=== PATIENT | female | born 1955 | race Caucasian/White ===

== ENCOUNTER 2018-01-15 08:18 | Observation (INO) | payer OTHER ==
[~2018-01-15] VITALS: Ht 165.1 cm; Wt 96.4 kg
[~2018-01-15 08:18] MED LIST: Bactrim Ds Tab1 EACH PO; CIPR500 PO; ERGO400 PO; GLUC500 PO; GNP B-COMPLEX1 EACH PO; IBUP800 PO; LEVSOD100 PO; OXYACE5T PO; Percocet 5-3251 EACH PO; Prinivil10 MG PO; VITAMIN D PO
[2018-01-15 09:00] LABS: BASOPHILS ABSOLUTE AUTO 0.03 K/mm3 (0.00-0.23); BASOPHILS PERCENT AUTO 0 % (0-2); EOSINOPHILS ABSOLUTE AUTO 0.13 K/mm3 (0.00-0.68); EOSINOPHILS PERCENT AUTO 2 % (0-6); Hematocrit 47.1 % (33.0-51.0); Hemoglobin 16.3 g/dL (11.5-16.0); IMMATURE GRAN ABSOLUTE AUTO 0.01 K/mm3 (0.00-0.10); IMMATURE GRAN PERCENT AUTO 0 % (0-1); LYMPHOCYTES ABSOLUTE AUTO 2.52 K/mm3 (0.84-5.20); LYMPHOCYTES PERCENT AUTO 29 % (21-46); MONOCYTES ABSOLUTE AUTO 1.07 K/mm3 (0.16-1.47); MONOCYTES PERCENT AUTO 12 % (4-13); Mean Corpuscular HGB 33.7 pg (26.0-34.0); Mean Corpuscular HGB Conc 34.6 g/dL (31.5-36.5); Mean Corpuscular Volume 97 fL (80-100); Mean Platelet Volume 9.9 fL (9.1-12.4); NEUTROPHILS ABSOLUTE AUTO 4.91 K/mm3 (1.96-9.15); NEUTROPHILS PERCENT AUTO 57 % (41-73); Platelet Count 256 K/mm3 (150-400); RDW Coefficient Variation 15.2 % (11.7-14.2); RDW Standard Deviation 54.1 fL (35.1-46.3); Red Blood Cell Count 4.84 M/mm3 (3.80-5.20); White Blood Cell Count 8.67 K/mm3 (4.00-11.30)
[2018-01-15 09:16] LABS: Alanine Aminotransfer (ALT/SGP 17 U/L (12-78); Albumin, Blood 3.2 g/dL (3.4-5.0); Albumin/Globulin Ratio 0.8 (0.8-1.8); Alk Phos 83 U/L (50-136); Anion Gap 8 mmol/L (6-16); Aspartate Aminotrans (AST/SGOT 12 U/L (12-37); Bilirubin, Total 0.5 mg/dL (0.1-1.0); Blood Urea Nitrogen 16 mg/dL (8-24); Bun/Creatinine Ratio 17.5 (12.0-20.0); CO2, Blood 24 mmol/L (21-32); Chloride, Blood 106 mmol/L (98-108); Creatinine, Blood 0.92 mg/dL (0.40-1.00); Globulin, Blood 4.1 g/dL (2.2-4.0); Glomerular Filtration Rate >60 (60-); Glucose, Blood 98 mg/dL (70-99); Potassium, Blood 4.5 mmol/L (3.5-5.5); Sodium, Blood 138 mmol/L (136-145); Total Protein, Blood 7.3 g/dL (6.4-8.2)
[2018-01-15 09:52] LABS: Base Excess Venous 0.2 mmol/L; Bicarbonate Venous 24.1 mmol/L (24.0-30.0); PCO2 Venous 44.3 mmHg (38-42); pH Blood Venous 7.37 (7.34-7.37)
[2018-01-16 04:13] LABS: BASOPHILS ABSOLUTE AUTO 0.01 K/mm3 (0.00-0.23); BASOPHILS PERCENT AUTO 0 % (0-2); EOSINOPHILS PERCENT AUTO 0 % (0-6); Hemoglobin 15.2 g/dL (11.5-16.0); IMMATURE GRAN ABSOLUTE AUTO 0.05 K/mm3 (0.00-0.10); IMMATURE GRAN PERCENT AUTO 1 % (0-1); LYMPHOCYTES ABSOLUTE AUTO 1.05 K/mm3 (0.84-5.20); LYMPHOCYTES PERCENT AUTO 10 % (21-46); MONOCYTES ABSOLUTE AUTO 0.19 K/mm3 (0.16-1.47); MONOCYTES PERCENT AUTO 2 % (4-13); Mean Corpuscular HGB 33.2 pg (26.0-34.0); Mean Corpuscular HGB Conc 34.5 g/dL (31.5-36.5); Mean Corpuscular Volume 96 fL (80-100); Mean Platelet Volume 9.8 fL (9.1-12.4); NEUTROPHILS ABSOLUTE AUTO 9.59 K/mm3 (1.96-9.15); NEUTROPHILS PERCENT AUTO 88 % (41-73); Platelet Count 258 K/mm3 (150-400); RDW Coefficient Variation 14.9 % (11.7-14.2); Red Blood Cell Count 4.58 M/mm3 (3.80-5.20); White Blood Cell Count 10.89 K/mm3 (4.00-11.30)
[2018-01-16 04:39] LABS: Calcium, Blood 8.8 mg/dL (8.5-10.1); Creatinine, Blood 1.07 mg/dL (0.40-1.00); Potassium, Blood 4.3 mmol/L (3.5-5.5); Thyroxine (T4) 7.3 ug/dL (4.8-13.9)
[2018-01-16 04:46] LABS: Thyroid Stimulating Hormone 0.373 uIU/mL (0.360-4.800); Triiodothyronine, Free 1.37 pg/mL (2.18-3.98)
[2018-01-16] MEDS ORDERED: FAMO20 PO (12:30)
[2018-01-16] MEDS ORDERED: Ipratr-Albuterol3 ML INH (12:33)
[2018-01-16] MEDS ORDERED: PRED20 PO (12:36)
== END 2018-01-16 14:53 | disposition home or self-care (01) ==
LOC: ER 08:18 → MEDS 08:19
PROVIDERS: Emergency Medicine; Internal Medicine; Physician Assistant
DX: J96.01 Acute respiratory failure with hypoxia (principal); J44.1 Chronic obstructive pulmonary disease with (acute) exacerbation; F41.9 Anxiety disorder, unspecified; I10 Essential (primary) hypertension; E03.9 Hypothyroidism, unspecified; E78.5 Hyperlipidemia, unspecified; F17.290 Nicotine dependence, other tobacco product, uncomplicated; Z79.899 Other long term (current) drug therapy
CPT/HCPCS: 36415; 71046; 80048; 80053; 82803; 83880; 84145; 84436; 84443; 84481; 84484; 85025; 93005; 93010; 94640; 94644; 94760; 94761; 96361; 96374; 96376; 99285; G0378; J0456; J1650; J1885; J2930; J7030; J7050

== ENCOUNTER → 2018-04-04 | Outpatient (CLI) | payer OTHER ==
[~2018-04-04] MED LIST changes: +FAMO20 PO; +Ipratr-Albuterol3 ML INH; +PRED20 PO
== END | disposition home or self-care (01) ==
LOC: LAB SHORT 10:01 → LAB 10:01
DX: L08.9 Local infection of the skin and subcutaneous tissue, unspecified (principal)
CPT/HCPCS: 87070; 87205

== ENCOUNTER 2020-06-18 16:08 | Emergency (ER) | payer OTHER ==
[~2020-06-18] VITALS: Ht 165.1 cm; Wt 72.6 kg
[2020-06-18 16:35] LABS: BASOPHILS ABSOLUTE AUTO 0.04 K/mm3 (0.00-0.23); BASOPHILS PERCENT AUTO 1 % (0-2); EOSINOPHILS ABSOLUTE AUTO 0.14 K/mm3 (0.00-0.68); EOSINOPHILS PERCENT AUTO 2 % (0-6); Hematocrit 46.7 % (33.0-51.0); Hemoglobin 15.3 g/dL (11.5-16.0); IMMATURE GRAN ABSOLUTE AUTO 0.01 K/mm3 (0.00-0.10); IMMATURE GRAN PERCENT AUTO 0 % (0-1); LYMPHOCYTES ABSOLUTE AUTO 3.25 K/mm3 (0.84-5.20); LYMPHOCYTES PERCENT AUTO 41 % (21-46); MONOCYTES ABSOLUTE AUTO 0.83 K/mm3 (0.16-1.47); MONOCYTES PERCENT AUTO 11 % (4-13); Mean Corpuscular HGB 30.2 pg (26.0-34.0); Mean Corpuscular HGB Conc 32.8 g/dL (31.5-36.5); Mean Corpuscular Volume 92 fL (80-100); Mean Platelet Volume 9.7 fL (9.1-12.4); NEUTROPHILS ABSOLUTE AUTO 3.63 K/mm3 (1.96-9.15); NEUTROPHILS PERCENT AUTO 46 % (41-73); Platelet Count 329 K/mm3 (150-400); RDW Coefficient Variation 13.6 % (11.7-14.2); RDW Standard Deviation 46.5 fL (35.1-46.3); Red Blood Cell Count 5.07 M/mm3 (3.80-5.20)
[2020-06-18 17:02] LABS: Albumin, Blood 3.7 g/dL (3.4-5.0); Albumin/Globulin Ratio 1.1 (0.8-1.8); Bilirubin, Total 0.6 mg/dL (0.1-1.0); Bun/Creatinine Ratio 7.3 (12.0-20.0); Calcium, Blood 9.2 mg/dL (8.5-10.1); Creatinine, Blood 1.09 mg/dL (0.40-1.00); Globulin, Blood 3.4 g/dL (2.2-4.0); Potassium, Blood 3.9 mmol/L (3.5-5.5); Total Protein, Blood 7.1 g/dL (6.4-8.2)
[2020-06-18 18:52] LABS: Source, Urine Clean Catch
[2020-06-18 18:59] LABS: Bilirubin, Urine Neg (Neg); Blood, Urine 1+ (Neg); Glucose Qualitative, Urine Neg (Neg); Ketones, Urine 1+ (Neg); Leukocyte Esterase, Urine 1+ (Neg); Nitrite, Urine Pos (Neg); Protein, Urine Neg (Neg); Specific Gravity, Urine 1.015 (1.003-1.022); Urobilinogen, Urine 2+ (Normal)
[2020-06-18] MEDS ORDERED: Magnesium Citr296 ML PO (19:02)
[2020-06-18 19:09] LABS: Appearance, Urine Clear (Clear); Color, Urine Yellow (P-Yellow)
[2020-06-18 19:10] LABS: Bacteria Many /hpf; Red Blood Cells, Urine 0-2 /hpf (0-2); Squamous Epithelial Cells Mod /hpf (Few)
== END 2020-06-18 19:15 | disposition home or self-care (01) ==
LOC: ER 16:08
PROVIDERS: Emergency Medicine
DX: K59.00 Constipation, unspecified (principal); I10 Essential (primary) hypertension; J44.9 Chronic obstructive pulmonary disease, unspecified; E03.9 Hypothyroidism, unspecified; I25.10 Atherosclerotic heart disease of native coronary artery without angina pectoris; F17.200 Nicotine dependence, unspecified, uncomplicated; Z86.73 Personal history of transient ischemic attack (TIA), and cerebral infarction without residual deficits; Z79.52 Long term (current) use of systemic steroids; Z79.899 Other long term (current) drug therapy
CPT/HCPCS: 36415; 74018; 80053; 81001; 83690; 85025; 87077; 87086; 87186; 99283-25

== ENCOUNTER 2023-04-12 06:54 | Day surgery (SDC) | payer MEDICARE, OTHER ==
[2023-04-12] VITALS (12 sets, daily range): BP systolic 124–162; BP diastolic 68–114
[~2023-04-12] VITALS: Ht 165.1 cm; Wt 93.0 kg
[~2023-04-12 06:54] MED LIST changes: +ALBU90OI INH; +ATOR10 PO; +Bupropion HCl100 M1 PO; +DHEA PO; +ESTRADIOL PO; +Estrace Vagin42.5 GM VAG; +GABA100 PO; +LIOT5 PO; +MONT10T PO; +Magnesium Citr296 ML PO; +PROG100 PO
--- NOTE | 2023-04-12 11:54 | NUR ---
PT ARRIVED TO THE ROOM AT 1140. PT IS NUMB FROM UPPER THIGH DOWN R/T SPINAL ANESTHESIA. PT DENIES PAIN. SHE IS TOLERATING PO AT THIS TIME. FAMILY PRESENT FOR SUPPORT. FIRE SAFETY EDUCATION PROVIDED, PT AND VISITORS ASSESSED FOR IGNITION SOURCES. NO FINDINGS.
[2023-04-12] MEDS ORDERED: Aspir 8181 MG PO (14:20)
--- NOTE | 2023-04-12 18:19 | NUR ---
SHIFT SUMMARY PT IS POD#0 FROM R TKA WITH DR. MACHADO. PT HAD SPINAL ANESTHESIA AND IS NOW ABLE TO FEEL/MOVE HER LOWER EXTREMITIES. PT ATTEMPTED TO WORK WITH THERAPY BUT HER SPINAL WAS STILL CAUSING DECREASED SENSATION AND MOVEMENT TO BLE. PT IS TOLERATING PO, PAIN MANAGED, VSS BUT BP HAS BEEN HIGH NORMAL. PT HAS HAD AN INCONTINENT VOID X1. WILL MONITOR UNTIL REPORT TO NOC RN.
[2023-04-13 03:35] VITALS: BP 185/92
--- NOTE | 2023-04-13 04:48 | NUR ---
SHIFT SUMMARY POD 1 R TKA, AQUACEL TO RLE, SIMRAN WRAP C/D/I. TOLERATING PO INTAKE, VOIDING WELL. UP WITH 1 ASSIST TO BATHROOM. PAIN MANAGED WITH PO PAIN PILLS. ICE TO RLE. SCD'S AND SUMEET HOSE ON. VSS, CALL LIGHT IN REACH. WILL REPORT TO ONCOMING SHIFT.
[2023-04-13 05:08] LABS: BASOPHILS ABSOLUTE AUTO 0.01 K/mm3 (0.00-0.23); BASOPHILS PERCENT AUTO 0 % (0-2); EOSINOPHILS PERCENT AUTO 0 % (0-6); Hematocrit 40.5 % (33.0-51.0); Hemoglobin 13.8 g/dL (11.5-16.0); IMMATURE GRAN ABSOLUTE AUTO 0.05 K/mm3 (0.00-0.10); IMMATURE GRAN PERCENT AUTO 0 % (0-1); LYMPHOCYTES ABSOLUTE AUTO 1.07 K/mm3 (0.84-5.20); LYMPHOCYTES PERCENT AUTO 9 % (21-46); MONOCYTES PERCENT AUTO 5 % (4-13); Mean Corpuscular HGB 32.6 pg (26.0-34.0); Mean Corpuscular HGB Conc 34.1 g/dL (31.5-36.5); Mean Corpuscular Volume 96 fL (80-100); Mean Platelet Volume 10.3 fL (9.1-12.4); NEUTROPHILS PERCENT AUTO 86 % (41-73); Platelet Count 280 K/mm3 (150-400); RDW Coefficient Variation 14.5 % (11.7-14.2); RDW Standard Deviation 50.8 fL (35.1-46.3); Red Blood Cell Count 4.23 M/mm3 (3.80-5.20); White Blood Cell Count 11.93 K/mm3 (4.00-11.30)
[2023-04-13 05:29] LABS: Bun/Creatinine Ratio 21.2 (12.0-20.0); Calcium, Blood 8.5 mg/dL (8.5-10.1); Creatinine, Blood 1.13 mg/dL (0.40-1.00); Potassium, Blood 4.7 mmol/L (3.5-5.5)
[2023-04-13 07:17] VITALS: BP 163/116
[2023-04-13 07:19] VITALS: BP 151/95
[2023-04-13] MEDS ORDERED: Percocet 5-3251 EACH PO (08:42)
--- NOTE | 2023-04-13 09:17 | NUR ---
DISCHARGE PT HAS CLEARED THERAPY & VERY ANXIOUS TO LEAVE. PAIN WELL CONTROLLED. EATING, DRINKING, & VOIDING WELL. DRSGS, SCRIPT, & POLAR PACK SENT w/ PT. ESCORTED OUT VIA W/C.
== END 2023-04-13 09:03 | disposition home or self-care (01) ==
LOC: ORSCMMR 06:54 → ORD 08:15 → SURS 11:27 → ORSCMMR 04-13 09:03
PROVIDERS: Orthopaedic Surgery
PROC: 0SRC0JA Replacement of Right Knee Joint with Synthetic Substitute, Uncemented, Open Approach (ICD-10-PCS; principal; 2023-04-12 08:15)
DX: M17.11 Unilateral primary osteoarthritis, right knee (principal); I10 Essential (primary) hypertension; J44.9 Chronic obstructive pulmonary disease, unspecified; Z87.891 Personal history of nicotine dependence; E03.9 Hypothyroidism, unspecified; G62.9 Polyneuropathy, unspecified; F32.A Depression, unspecified; Z79.899 Other long term (current) drug therapy; E66.9 Obesity, unspecified; Z68.34 Body mass index [BMI] 34.0-34.9, adult
CPT/HCPCS: 36415; 73560-RT; 80048; 85025; 94760; 97110; 97116; 97161; 97530; A9270; C1776; J0171; J0690; J0735; J1100; J1790; J1885; J2250; J2704; J2795; J3010; J7120

== ENCOUNTER 2023-05-01 15:18 | Emergency (ER) | payer MEDICARE, OTHER ==
[~2023-05-01] VITALS: Ht 172.7 cm; Wt 113.4 kg
[~2023-05-01 15:18] MED LIST changes: +Aspir 8181 MG PO
[2023-05-01 15:30] LABS: Calcium, Ionized (POC) 1.07 mmol/L (1.10-1.46); Chloride (POC) 103 mmol/L (98-108); Creatinine (POC) 1.1 mg/dL (0.6-1.0); Glucose (ISTAT POC) 174 mg/dL (70-99); Hemoglobin (POC) 15.6 g/dL (12.0-16.0); Potassium (POC) 3.6 mmol/L (3.5-5.5); Sodium (POC) 137 mmol/L (135-148); Total CO2 (POC) 23 mmol/L (21-32)
[2023-05-01 15:42] LABS: BASOPHILS ABSOLUTE AUTO 0.07 K/mm3 (0.00-0.23); BASOPHILS PERCENT AUTO 1 % (0-2); EOSINOPHILS PERCENT AUTO 4 % (0-6); Hematocrit 44.3 % (33.0-51.0); Hemoglobin 14.7 g/dL (11.5-16.0); IMMATURE GRAN ABSOLUTE AUTO 0.09 K/mm3 (0.00-0.10); IMMATURE GRAN PERCENT AUTO 1 % (0-1); LYMPHOCYTES ABSOLUTE AUTO 4.17 K/mm3 (0.84-5.20); LYMPHOCYTES PERCENT AUTO 31 % (21-46); MONOCYTES ABSOLUTE AUTO 1.44 K/mm3 (0.16-1.47); MONOCYTES PERCENT AUTO 11 % (4-13); Mean Corpuscular HGB 32.5 pg (26.0-34.0); Mean Corpuscular HGB Conc 33.2 g/dL (31.5-36.5); Mean Corpuscular Volume 98 fL (80-100); Mean Platelet Volume 9.4 fL (9.1-12.4); NEUTROPHILS ABSOLUTE AUTO 7.17 K/mm3 (1.96-9.15); NEUTROPHILS PERCENT AUTO 53 % (41-73); Platelet Count 406 K/mm3 (150-400); RDW Coefficient Variation 15.6 % (11.7-14.2); RDW Standard Deviation 55.8 fL (35.1-46.3); Red Blood Cell Count 4.53 M/mm3 (3.80-5.20); White Blood Cell Count 13.44 K/mm3 (4.00-11.30)
[2023-05-01 15:55] LABS: Base Excess Venous 0.8 mmol/L; Bicarbonate Venous 23.6 mmol/L (24.0-30.0); PCO2 Venous 52.4 mmHg (38-42); pH Blood Venous 7.32 (7.34-7.37)
[2023-05-01 16:00] LABS: Albumin, Blood 3.5 g/dL (3.4-5.0); Bilirubin, Total 0.3 mg/dL (0.1-1.0); Bun/Creatinine Ratio 17.9 (12.0-20.0); Calcium, Blood 9.3 mg/dL (8.5-10.1); Creatinine, Blood 1.06 mg/dL (0.40-1.00); Globulin, Blood 3.4 g/dL (2.2-4.0); Potassium, Blood 3.7 mmol/L (3.5-5.5); Total Protein, Blood 6.9 g/dL (6.4-8.2)
[2023-05-01 17:11] LABS: Influenza A, PCR NEGATIVE (NEGATIVE); Influenza B, PCR NEGATIVE (NEGATIVE); Resp Syncytial Virus, PCR NEGATIVE (NEGATIVE); SARS-Cov-2 (COVID-19) PCR, MMC NEGATIVE (NEGATIVE)
[2023-05-01 17:40] LABS: International Normalized Ratio 0.97; Prothrombin Time Results 10.2 Sec (9.7-11.5)
--- NOTE | 2023-05-01 18:06 | NUR ---
Spiretual Care : ED Call Back Pt. is intubated and non responsive. Spouse and Pts. sister are in the waiting room as nurse Ashlee and I upate the family and bring them to the Pt. The ER Doc. gave the family andf update of the Pts. condition. The returned with the news that they will be transferring the Pt. to [facility] in [place]. Prayed with Spouse Nahid. When REACH team arrived the spouse departed [facility] for [place]. Marry, the other family members went to the [facility] as their granddaughter was giving . Two family members asked if they could see the Pt. This supervisor bottle machines escorted them to the ED. They were present for a moment, and then returned to the . I updated ED charge nurse that the family have left the ED.
[2023-05-02] VITALS: BP 116/86
[2023-05-02 00:30] VITALS: BP 132/74
== END 2023-05-01 19:22 | disposition short-term general hospital (02) ==
LOC: ER 15:18
PROVIDERS: Emergency Medicine
DX: S06.5XAA Traumatic subdural hemorrhage with loss of consciousness status unknown, initial encounter (principal); J96.90 Respiratory failure, unspecified, unspecified whether with hypoxia or hypercapnia; W19.XXXA Unspecified fall, initial encounter; Z88.5 Allergy status to narcotic agent; Z79.899 Other long term (current) drug therapy; Z79.82 Long term (current) use of aspirin; I10 Essential (primary) hypertension; E03.9 Hypothyroidism, unspecified; J44.9 Chronic obstructive pulmonary disease, unspecified; F17.210 Nicotine dependence, cigarettes, uncomplicated
CPT/HCPCS: 0241U; 31500; 51702; 70450; 71045; 71260; 80047; 80053; 82803; 84484; 85014; 85025; 85610; 85730; 93005; 93010; 94002; 96365-59; 96366-59; 96368; 96375-59; 99291-25; J0171; J0282; J0330; J0461; J0696; J1953; J2060; J2704; J7050; Q9967